=== PATIENT | male | born 1930 | race Caucasian/White ===

== ENCOUNTER 2017-04-09 07:37 | Emergency (ER) | payer OTHER ==
[~2017-04-09] VITALS: Ht 165.1 cm; Wt 75.5 kg
[~2017-04-09 07:37] MED LIST: AMLO2.5T PO; ASPI-428 PO; ATOR-24 PO; ENAL10TA88 PO; METO50TA16 PO; NTRGSL/4 UT
[2017-04-09 07:40] VITALS: TEMP 36.6; Ht 165.1 cm; Wt 75.5 kg
--- NOTE | 2017-04-09 08:06 | EMERGENCY ROOM VISIT NOTE ---
History First contact with patient: 07:43 Chief Complaint: LEG PAIN,LEG INJURY Stated Complaint: RIGHT KNEE PAIN/LEG PAIN History of Present Illness The patient is a 86 year old male who presents to the Emergency Room with complaints of right lower leg pain. The patient states history morning, he awoke with the discomfort, and throughout the day it was worsening. The patient states he has noted a lump in the anterior, medial aspect of the ankle. The patient states he is able to move and bear weight, however this causes significantly increased pain. The patient states the pain radiates up his leg and to his hip. The patient states yesterday he called his PCP, and they suspected sciatica, and told him that an x-ray wouldn't show anything. The patient describes the pain as sharp and rates it 8/10 while walking. The patient states the pain improves while sitting. He took a few Tylenol yesterday , and states he is uncertain if they helped, because he sat around during the day, which also helped with the pain. The patient denies recent travel. He denies injury. The patient denies history of blood clots. He does report some tingling in his right big toe, but denies any numbness or weakness. Patient denies dyspnea, chest pain, swelling, pain anywhere else, nausea, vomiting, diarrhea, constipation, recent illness, color changes, or other concerning symptoms. Review of Systems A complete 10 point review of systems was reviewed with the patient with pertinent positives and negatives as per history of present illness. All else were negative. 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 Problems: (1) Aortocoronary Bypass Social History Smoking Status: Never Smoker Smokeless Tobacco Use: No Alcohol Use: none Drug Use: none Marital Status: Housing Status: lives with significant other Occupation Status: retired Current/Historical Medications Scheduled Amlodipine (Norvasc), 2.5 MG PO DAILY Aspirin (Ecotrin Low Strength), 81 MG PO DAILY Atorvastatin (Lipitor), 40 MG PO DAILY Enalapril (Vasotec), 10 MG PO BID Metoprolol Tartrate (Lopressor) (Lopressor), 25 MG PO BID Nitroglycerin (Nitrostat), 0.4 MG UT PRN Scheduled PRN Tramadol (Ultram), 1 TAB PO TID PRN for Pain Allergies rosuvastatin Physical Exam Vital Signs Date Time Temp Pulse Resp B/P (MAP) Pulse Ox O2 Delivery O2 Flow Rate FiO2 04/09/17 09:12 56 17 175/58 99 Room Air 04/09/17 07:40 36.6 53 18 193/79 97 Room Air Physical Exam VITALS: Vitals are noted on the nurse's note and reviewed by myself. Vital signs stable. GENERAL: This is an 86 yo male, in no acute distress, nondiaphoretic, well- developed well-nourished. SKIN: There is mild erythema and very little swelling of the right lower extremity from the ankle to the foot. There are several varicosities on bilateral lower extremities, worse on the right than the left. The skin was without rashes, edema, or bruising. There is no tenting of the skin. Capillary reflex less than 2 seconds. HEAD: Normocephalic atraumatic. EARS: External auditory canals clear, tympanic membranes pearly james without erythema or effusion bilaterally. EYES: Pupils equal round and reactive to light and accommodation. Conjunctivae without injection, sclerae without icterus. Extraocular movements intact. NOSE: Patent, turbinates without inflammation or discharge. No sinus tenderness. MOUTH: Mucous membranes moist. Tonsils are not enlarged. Pharynx without erythema or exudate. Uvula midline. Airway patent. Tongue does not deviate. NECK: Supple without nuchal rigidity. No lymphadenopathy. No thyromegaly. Cervical spine is nontender. No JVD. HEART: Regular rate and rhythm without murmurs gallops or rubs. LUNGS: Clear to auscultation bilaterally without wheezes, rales or rhonchi. No dullness to percussion. No retractions or accessory muscle use. MUSCULOSKELETAL: No muscle atrophy, erythema, or edema noted. Full range of motion with mild joint tenderness in the right knee and ankle. No tenderness to palpation. No tenderness to palpation of the back. Normal gait. Strength 5/ 5 throughout. Negative Bebe's Sign. NEURO: Patient was alert and oriented to person place and time. Normal sensation to light and sharp touch. Deep tendon reflexes 2+ throughout. No focal neurological deficits. Medical Decision & Procedures ER Provider Diagnostic Interpretation: RADIOLOGY: Venous Doppler RLE: FINDINGS: There is normal compressibility, flow, and augmentation within the right lower extremity deep venous system. IMPRESSION: No sonographic evidence of deep venous thrombosis within the imaged right lower extremity. Medical Decision The patient was seen and evaluated as above. He presented with right lower extremity pain. The patient states symptoms worsen with walking, and improved with rest. While he has not recently traveled, the patient is mostly sedentary. Based on his symptoms and examination, I suspect possible DVT, and did order an ultrasound in order to rule this out. The ultrasound was negative, and as the patient relaxed with his foot elevated on the bed, the redness and swelling went down. The patient was seen and evaluated by Dr. Lopez, and the patient told him that he was experiencing knee pain, denies pain in the foot or ankle. The patient states the pain is worse when his leg is straightened, and and improves with it bent. Based on the patient's symptoms and negative ultrasound, I suspect musculoskeletal nature of illness versus neuropathy. Will treat patient for musculoskeletal pain, and he will follow up at his PCP appointment this morning. Differential diagnosis includes: DVT, fracture or stress fracture, sprain or strain, varicose veins, lymphedema, cellulitis, arthritis, compartment syndrome , neuropathy, gout, Peripheral artery disease, atherosclerosis, malignancy, and others. [place] Drug Monitoring Program Search Results: patient reviewed within database, no issues identified Medication Reconcilliation Current Medication List: was personally reviewed by me Blood Pressure Screening Patient's blood pressure: Elevated blood pressure Blood pressure disposition: Elevated BP felt to be situational, Referred to PCP Impression Primary Impression: Leg pain, right Departure Information Dispostion Home / Self-Care Condition GOOD Prescriptions Tramadol (Ultram) 50 Mg Tab 1 TAB PO TID Y for Pain, #15 TAB Prov: Tracy Rock, ROSA 04/09/17 Referrals Sridhar Huddleston M.D. (MEDICAL) (PCP) Patient Instructions ED Degenerative Joint Disease, My [facility] Additional Instructions You were seen in the emergency department today for right foot and leg pain. We did rule out a blood clot with an ultrasound. For pain control, he may use acetaminophen (Tylenol) 1000mg three times daily. Do not exceed 3000mg in 24 hours. You may want to consider Fish Oil (2000mg daily), Glucosamine (as directed), and Tumeric (500mg daily) as supplements which help with arthritis pain. If you experience any fever, redness, chills, nausea, vomiting, significant swelling in the foot or toe, or other concerning symptoms, return to the emergency department or follow-up with your PCP. Please discuss your emergency department visit with your PCP today your appointment.
--- NOTE | 2017-04-09 08:54 | DIAGNOSTIC IMAGING REPORT ---
BILATERAL LOWER EXTREMITY VENOUS DOPPLER HISTORY: Acute right lower leg pain/redness COMPARISON STUDY: None. FINDINGS: There is normal compressibility, flow, and augmentation within the right lower extremity deep venous system. IMPRESSION: No sonographic evidence of deep venous thrombosis within the imaged right lower extremity. Electronically signed by: Julito Valenzuela M.D. 04/09/2017 8:53 AM Dictated Date/Time: 04/09/2017 8:51 AM
--- NOTE | 2017-04-09 09:46 | EMERGENCY ROOM VISIT NOTE ---
ED Visit Note First contact with patient: 07:43 Patient was seen by our PA/SLUBBER OPERATOR. I was involved in the patient's care and did evaluate the patient myself. I was involved in the care throughout the ER stay. The patient presents with right lower extremity pain. The pain is at times in the knee, at times in the calf and at times in the foot. There is no edema, no cellulitis. No evidence for neurovascular compromise. Ultrasound does not show DVT. The patient is going to be discharged on something for pain, rest and ice have been encouraged. He can follow with his doctor's office for a recheck later this week.
[2017-04-09] MEDS ORDERED: TRAM-10 PO (09:48)
[2017-04-09 10:09] VITALS: BP 175/58; PULSE 56; O2SAT 99
== END 2017-04-09 10:11 | disposition home or self-care (01) ==
LOC: C.EDB 07:38 → C.EDA 10:11
DX: M79.661 Pain in right lower leg (principal); R22.41 Localized swelling, mass and lump, right lower limb; I25.10 Atherosclerotic heart disease of native coronary artery without angina pectoris; I10 Essential (primary) hypertension; I73.9 Peripheral vascular disease, unspecified; Z95.1 Presence of aortocoronary bypass graft; Z79.82 Long term (current) use of aspirin

== ENCOUNTER 2017-04-10 11:22 | Emergency (ER) | payer OTHER ==
[~2017-04-10] VITALS: Ht 165.1 cm; Wt 75.0 kg
[~2017-04-10 11:22] MED LIST changes: +TRAM-10 PO
[2017-04-10 11:34] VITALS: TEMP 36.7; Ht 165.1 cm; Wt 75.0 kg
--- NOTE | 2017-04-10 12:21 | EMERGENCY ROOM VISIT NOTE ---
History Report prepared by Tamar: Benny Shah Under the Supervision of: Dr. Kurtis Dickens M.D. First contact with patient: 12:03 Chief Complaint: LEG PAIN,LEG INJURY Stated Complaint: RIGHT SIDE PAIN - LEG, HIP, FOOT History of Present Illness The patient is an 86 year old male who presents to the Emergency Room with complaints of worsening right leg pain that started 3 days ago. The patient says that the pain ranges from his right hip to his right knee, as well as the front part of his lower leg. He states that he called his primary care physician earlier yesterday, and made an appointment with the doctor, but because the pain was so bad, he decided to be seen here yesterday. The patient' s physician said that an x-ray would not be indicated because the patient's pain is most likely muscular. In the ED yesterday, the patient was checked for blood clots, per the patient's family. The doctors believe that the patient's pain is due to sciatica. The patient notes that the pain has been constant and makes him unable to "do anything", so he decided to come back here today. He states that the pain is worsened with movement. He has taken one dose of Tramadol 50 mg today, and this was his first dose as he just received the prescription. The patient's family says that the patient's pain is worsened with getting up and getting around. The patient has been noted to be doing more outdoor work recently before the pain came on. Any falls were denied on behalf of the patient and the patient denies any abdominal pain, bowel issues or new urinary symptoms. The patient says that he is followed by his doctor for his prostate, and the right testicle has been sore, but this is not new. He states that he urinates every hour but this is not new in the setting of his enlarged prostate. Source of History: patient, family Onset: 3 days ago Position: leg (right) Symptom Intensity: unable to "do anything" Timing: worsening Associated Symptoms: No abdominal pain, No urinary symptoms (no new) Note: Associated symptoms: Right hip pain. Denies any falls or bowel problems. Review of Systems See HPI for pertinent positives and negatives. A total of ten systems were reviewed and were otherwise negative. 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 Social History Smoking Status: Never Smoker Alcohol Use: none Drug Use: none Marital Status: Housing Status: lives with significant other Occupation Status: retired Current/Historical Medications Scheduled Amlodipine (Norvasc), 2.5 MG PO DAILY Aspirin (Ecotrin Low Strength), 81 MG PO DAILY Atorvastatin (Lipitor), 40 MG PO DAILY Enalapril (Vasotec), 10 MG PO BID Gabapentin (Neurontin), 1 CAP PO TID Metoprolol Tartrate (Lopressor) (Lopressor), 25 MG PO BID Nitroglycerin (Nitrostat), 0.4 MG UT PRN Prednisone (Prednisone), 2 TAB PO DAILY Scheduled PRN Tramadol (Ultram), 1 TAB PO TID PRN for Pain Allergies Coded Allergies: Rosuvastatin (Verified Adverse Reaction, Unknown, joint pain, 04/10/17) Physical Exam Vital Signs Date Time Temp Pulse Resp B/P (MAP) Pulse Ox O2 Delivery O2 Flow Rate FiO2 04/10/17 16:57 56 18 175/67 98 04/10/17 14:47 54 18 193/68 99 Room Air 04/10/17 13:08 56 18 161/66 99 Room Air 04/10/17 11:34 36.7 68 18 161/79 95 Physical Exam GENERAL: Awake, alert, well-appearing, in no acute distress HENT: Normocephalic, atraumatic. Oropharynx unremarkable. EYES: Normal conjunctiva. Sclera non-icteric. NECK: Supple. No nuchal rigidity. FROM. No JVD. RESPIRATORY: Clear to auscultation. CARDIAC: Regular rate, normal rhythm. Extremities warm and well perfused. Pulses equal. ABDOMEN: Soft, non-distended. No tenderness to palpation. No rebound or guarding. No masses. RECTAL: Deferred. MUSCULOSKELETAL: Chest examination reveals no tenderness. Mild tenderness in right lateral aspect of his buttock in a sciatic distribution. +straight leg raise on right. 5/5 strength with FROM and SILT x 4 Ext. There is no CVA tenderness to palpation. No joint edema. LOWER EXTREMITIES: Calves are equal size bilaterally and non-tender. No edema. No discoloration. NEURO: Normal sensorium. Positive straight raise leg test. No sensory or motor deficits noted. SKIN: No rash or jaundice noted. Medical Decision & Procedures ER Provider Diagnostic Interpretation: Radiology results as stated below per my review and radiologist interpretation: MRI OF THE LUMBAR SPINE WITHOUT IV CONTRAST CLINICAL HISTORY: Chronic low back pain. Sciatica. COMPARISON STUDY: Abdominal CT dated 11/27/2011. TECHNIQUE: MRI of the lumbar spine is performed utilizing various T1 and T2-weighted sequences in the axial and sagittal planes. IV contrast was not administered for this examination. FINDINGS: Lumbar spine: Vertebral body height and alignment are maintained throughout the lumbar spine. Marrow signal intensity is heterogeneous. Small anterior osteophytes are seen throughout. The transverse and spinous processes are intact as visualized. There is no evidence of spondylolysis. 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 These were also seen by CT in 2012. No destructive bony lesion is clearly seen. Degenerative endplate edema is noted at L5-S1. Intervertebral discs: Degenerative disc desiccation is seen throughout the lumbar spine. There is moderate to advanced loss of height at L1-L2, L2-L3, and L5-S1. Spinal cord: The visualized spinal cord is normal in morphology and signal intensity. The conus medullaris terminates at the level of L2. The nerve roots of the cauda equina are normal in morphology. L1-L2: Unremarkable. L2-L3: There is minimal posterior disc bulge and annular fissure. No significant acquired compromise of the central canal is identified. There is mild bilateral subarticular stenosis, left greater than right. This may abut the exiting left L2 nerve root. Facet arthropathy is of no consequence. The neural foramina are clear. Facet joint effusions are noted. L3-L4: There is minimal posterior disc bulge. No significant acquired compromise of the central canal is identified. There is mild bilateral subarticular stenosis. Facet arthropathy is of no consequence. The neural foramina are clear. Facet joint effusions are identified. L4-L5: There is a small posterior disc bulge. There is also hypertrophy of the ligamentum flavum. There is no significant acquired compromise of the central canal which measures 10 mm in AP diameter. Facet arthropathy causes mild bilateral neural foraminal stenosis. Disc bulge is eccentric to left and causes bilateral subarticular stenosis. This may abut the exiting bilateral L4 nerve roots. L5-S1: There is anterior disc herniation at this level. There is no posterior disc bulge. The central canal is clear. Facet arthropathy causes mild bilateral neural foraminal stenosis. Sacrum: Fatty marrow signal change is noted in the sacrum. The sacrum is otherwise normal as imaged. Soft tissues: There is fatty atrophy of the paraspinous and iliopsoas musculature. The partially imaged retroperitoneal structures are grossly unremarkable but incompletely assessed. IMPRESSION: 1. There is no posterior disc herniation or significant acquired compromise of the central canal. 2. There is anterior disc herniation at L5-S1. Degenerative endplate edema is noted at this level. 3. Multilevel spondylotic change as above. See discussion for detailed level by level analysis. 4. No destructive bony lesion is identified. Dictated: 04/10/2017 3:02 PM Transcribed: 04/10/2017 3:19 PM [email or web address] Electronically signed by: Jhony Marshall M.D. 04/10/2017 3:26 PM Dictated Date/Time: 04/10/2017 3:02 PM RIGHT HIP UNILATERAL 2 VIEWS, RIGHT FEMUR 2 VIEWS ROUTINE CLINICAL HISTORY: 86 years-old Male presenting with pain Right. TECHNIQUE: Frontal and frog-leg lateral views of the right hip and frontal and lateral views of the right femur were obtained. COMPARISON: None. FINDINGS: Right hip: Right hip joint congruent. Mild degenerative change. Preservation of joint space. No acute fracture or malalignment. Visualized portion of the pelvis demonstrates degenerative change of the pubic symphysis and right sacroiliac joint. Enthesophyte noted at the insertion of the gluteus complex. Right femur: No acute fracture. Knee joint congruent although tricompartmental degenerative changes present with medial joint space loss and subchondral sclerosis. Trace knee effusion may be present. Atherosclerosis. IMPRESSION: No acute osseous injury of the right hip or right femur. Degenerative changes as above most severe in the medial compartment of the knee. Electronically signed by: Diogenes Almanza M.D. 04/10/2017 4:08 PM Dictated Date/Time: 04/10/2017 4:05 PM RIGHT HIP UNILATERAL 2 VIEWS, RIGHT FEMUR 2 VIEWS ROUTINE CLINICAL HISTORY: 86 years-old Male presenting with pain Right. TECHNIQUE: Frontal and frog-leg lateral views of the right hip and frontal and lateral views of the right femur were obtained. COMPARISON: None. FINDINGS: Right hip: Right hip joint congruent. Mild degenerative change. Preservation of joint space. No acute fracture or malalignment. Visualized portion of the pelvis demonstrates degenerative change of the pubic symphysis and right sacroiliac joint. Enthesophyte noted at the insertion of the gluteus complex. Right femur: No acute fracture. Knee joint congruent although tricompartmental degenerative changes present with medial joint space loss and subchondral sclerosis. Trace knee effusion may be present. Atherosclerosis. IMPRESSION: No acute osseous injury of the right hip or right femur. Degenerative changes as above most severe in the medial compartment of the knee. Electronically signed by: Diogenes Almanza M.D. 04/10/2017 4:08 PM Dictated Date/Time: 04/10/2017 4:05 PM Medications Administered Medications (Trade) Dose Ordered Sig/[place] Route Start Time Stop Time Status Last Admin Dose Admin Ibuprofen (Motrin Tab) 600 mg NOW STAT PO 04/10/17 12:24 04/10/17 12:27 DC 04/10/17 13:05 600 MG Diazepam (Valium Tab) 2 mg NOW ONCE PO 04/10/17 12:30 04/10/17 12:31 DC 04/10/17 13:05 2 MG Oxycodone/ Acetaminophen (Percocet 5-325mg Tab) 1 tab NOW STAT PO 04/10/17 15:17 04/10/17 15:19 DC 04/10/17 15:32 1 TAB ED Course 1205: The patient was evaluated in room B3B. A complete history and physical exam was performed. 1224: Ordered Motrin Tab 600 mg PO. 1230: Ordered Valium Tab 2 mg PO. 1509: I reevaluated and updated the patient. 1517: Ordered Percocet 5-325mg Tab 1 tab PO. 1722: I reevaluated the patient. Discussed results and discharge instructions: he verbalized understanding and agreement. The patient is ready for discharge. Medical Decision I reviewed the patient's past medical history, medications, and the nursing notes as described above. Differential diagnoses: sciatica, disk herniation, fracture, musculoskeletal strain. Patient presents to emergency department persistent back and right leg pain after being seen in emergency department several days prior with diagnosis of sciatica per history of present illness. Arrival the patient appears uncomfortable is no distress. Afebrile stable vital signs. Considering the patient's symptoms and apparent significant disability and unable to ambulate at home MRI was done which showed areas of disc bulge that could be consistent with the patient's symptoms. Otherwise no concerning findings for cord compression. However for completeness x-rays were done also to rule out any pathologic fractures and was negative for acute findings. Patient with marginal improvement with ibuprofen, Valium, oxycodone. Case management assisting to help patient arrange home PT to eval. Findings and plan for follow- up d/w patient. Patient agreeable and d/c'd per discharge instructions. Medication Reconcilliation Current Medication List: was personally reviewed by me Blood Pressure Screening Patient's blood pressure: Elevated blood pressure Blood pressure disposition: Elevated BP felt to be situational Impression Primary Impression: Sciatica Scribe Attestation The scribe's documentation has been prepared under my direction and personally reviewed by me in its entirety. I confirm that the note above accurately reflects all work, treatment, procedures, and medical decision making performed by me. Departure Information Dispostion Home / Self-Care Referrals Sridhar Huddleston M.D. (MEDICAL) (PCP) Patient Instructions ED Sciatica, My [facility] Additional Instructions Please follow up with your primary care physician in the next 1-3 days for reevaluation and likely physical therapy. Otherwise, your exam, MRI, x-rays did not show signs of an emergent condition at this time. Continue current medications as prescribed. Apply heating pad every 20 minutes throughout the day for additional pain relief. Return to the emergency department for worsening symptoms as described in the accompanying instructions.
[2017-04-10] MEDS ORDERED: IBUPROFEN 600 MG TAB PO STA (12:24)
[2017-04-10] MEDS ORDERED: DIAZEPAM 2MG TAB PO ONE (12:30)
[2017-04-10] MEDS ORDERED: OXYCODONE/ACETAMINOPHEN 5-325 TAB PO STA (15:17)
--- NOTE | 2017-04-10 15:20 | DIAGNOSTIC IMAGING REPORT ---
MRI OF THE LUMBAR SPINE WITHOUT IV CONTRAST CLINICAL HISTORY: Chronic low back pain. Sciatica. COMPARISON STUDY: Abdominal CT dated 11/27/2011. TECHNIQUE: MRI of the lumbar spine is performed utilizing various T1 and T2-weighted sequences in the axial and sagittal planes. IV contrast was not administered for this examination. FINDINGS: Lumbar spine: Vertebral body height and alignment are maintained throughout the lumbar spine. Marrow signal intensity is heterogeneous. Small anterior osteophytes are seen throughout. The transverse and spinous processes are intact as visualized. There is no evidence of spondylolysis. 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 These were also seen by CT in 2012. No destructive bony lesion is clearly seen. Degenerative endplate edema is noted at L5-S1. Intervertebral discs: Degenerative disc desiccation is seen throughout the lumbar spine. There is moderate to advanced loss of height at L1-L2, L2-L3, and L5-S1. Spinal cord: The visualized spinal cord is normal in morphology and signal intensity. The conus medullaris terminates at the level of L2. The nerve roots of the cauda equina are normal in morphology. L1-L2: Unremarkable. L2-L3: There is minimal posterior disc bulge and annular fissure. No significant acquired compromise of the central canal is identified. There is mild bilateral subarticular stenosis, left greater than right. This may abut the exiting left L2 nerve root. Facet arthropathy is of no consequence. The neural foramina are clear. Facet joint effusions are noted. L3-L4: There is minimal posterior disc bulge. No significant acquired compromise of the central canal is identified. There is mild bilateral subarticular stenosis. Facet arthropathy is of no consequence. The neural foramina are clear. Facet joint effusions are identified. L4-L5: There is a small posterior disc bulge. There is also hypertrophy of the ligamentum flavum. There is no significant acquired compromise of the central canal which measures 10 mm in AP diameter. Facet arthropathy causes mild bilateral neural foraminal stenosis. Disc bulge is eccentric to left and causes bilateral subarticular stenosis. This may abut the exiting bilateral L4 nerve roots. L5-S1: There is anterior disc herniation at this level. There is no posterior disc bulge. The central canal is clear. Facet arthropathy causes mild bilateral neural foraminal stenosis. Sacrum: Fatty marrow signal change is noted in the sacrum. The sacrum is otherwise normal as imaged. Soft tissues: There is fatty atrophy of the paraspinous and iliopsoas musculature. The partially imaged retroperitoneal structures are grossly unremarkable but incompletely assessed. IMPRESSION: 1. There is no posterior disc herniation or significant acquired compromise of the central canal. 2. There is anterior disc herniation at L5-S1. Degenerative endplate edema is noted at this level. 3. Multilevel spondylotic change as above. See discussion for detailed level by level analysis. 4. No destructive bony lesion is identified. Dictated: 04/10/2017 3:02 PM Transcribed: 04/10/2017 3:19 PM [email or web address] Electronically signed by: Jhony Marshall M.D. 04/10/2017 3:26 PM Dictated Date/Time: 04/10/2017 3:02 PM
--- NOTE | 2017-04-10 16:09 | DIAGNOSTIC IMAGING REPORT ---
RIGHT HIP UNILATERAL 2 VIEWS, RIGHT FEMUR 2 VIEWS ROUTINE CLINICAL HISTORY: 86 years-old Male presenting with pain Right. TECHNIQUE: Frontal and frog-leg lateral views of the right hip and frontal and lateral views of the right femur were obtained. COMPARISON: None. FINDINGS: Right hip: Right hip joint congruent. Mild degenerative change. Preservation of joint space. No acute fracture or malalignment. Visualized portion of the pelvis demonstrates degenerative change of the pubic symphysis and right sacroiliac joint. Enthesophyte noted at the insertion of the gluteus complex. Right femur: No acute fracture. Knee joint congruent although tricompartmental degenerative changes present with medial joint space loss and subchondral sclerosis. Trace knee effusion may be present. Atherosclerosis. IMPRESSION: No acute osseous injury of the right hip or right femur. Degenerative changes as above most severe in the medial compartment of the knee. Electronically signed by: Diogenes Almanza M.D. 04/10/2017 4:08 PM Dictated Date/Time: 04/10/2017 4:05 PM
[2017-04-10 16:57] VITALS: BP 175/67; PULSE 56; O2SAT 98
[2017-04-11] MEDS ORDERED: NRN/300 PO (18:52)
[2017-04-11] MEDS ORDERED: PRED20TA PO (18:52)
== END 2017-04-10 17:52 | disposition home or self-care (01) ==
LOC: C.EDB 11:24
DX: M54.41 Lumbago with sciatica, right side (principal); I25.10 Atherosclerotic heart disease of native coronary artery without angina pectoris; I10 Essential (primary) hypertension; I73.9 Peripheral vascular disease, unspecified; Z95.1 Presence of aortocoronary bypass graft; Z79.82 Long term (current) use of aspirin; Z79.899 Other long term (current) drug therapy

== ENCOUNTER 2017-04-11 16:08 | Emergency (ER) | payer OTHER ==
[2017-04-11 16:11] VITALS: TEMP 36.6; Ht 165.1 cm
[2017-04-11] MEDS ORDERED: DEXAMETHASONE SOD INJ 4 MG/ML VIAL IM STA (17:25)
[2017-04-11] MEDS ORDERED: GABAPENTIN 300 MG CAP PO ONE (17:30)
--- NOTE | 2017-04-11 17:44 | DIAGNOSTIC IMAGING REPORT ---
RIGHT TIBIA/FIBULA 2 VIEWS ROUTINE HISTORY: 86 years-old Male rt leg pain Right COMPARISON: Right femur radiographs 04/10/2017 TECHNIQUE: Frontal and lateral views of the right tibia and fibula. 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 No acute fracture or dislocation is identified. Negative for radiopaque foreign body. IMPRESSION: Degenerative changes about the knee without acute fracture or dislocation of the right tibia or fibula. The above report was generated using voice recognition software. It may contain grammatical, syntax or spelling errors. Electronically signed by: Julito Valenzuela M.D. 04/11/2017 5:43 PM Dictated Date/Time: 04/11/2017 5:42 PM
[2017-04-11] MEDS ORDERED: NRN/300 PO (18:52)
[2017-04-11] MEDS ORDERED: PRED20TA PO (18:52)
--- NOTE | 2017-04-11 18:54 | EMERGENCY ROOM VISIT NOTE ---
History Report prepared by Tamar: Dae Zarate Under the Supervision of: Dr. Kris Geronimo D.O. First contact with patient: 17:00 Chief Complaint: FOOT PAIN Stated Complaint: RT FOOT/LEG PAIN History of Present Illness The patient is a 86 year old male who presents to the Emergency Room with complaints of right leg pain that began a couple of days ago. He rates his pain a 10/10 in severity. The patient was here in the ER each day, for the past three days. Each time, he was discharged. He received multiple scans and tests which were negative. The only reason for the pain that his providers could think of is that he is having "disc deterioration that is putting pressure onto his sciatic nerve." He is experiencing pain from his right foot to his right buttock. His pain worsens with movement. Source of History: patient Onset: a couple of days ago Position: leg (right) Symptom Intensity: 10/10 Quality: pressure Timing: constant Modifying Factors (Worsening): movement Note: He has pain in his right foot, knee, hip, and buttock. Review of Systems See HPI for pertinent positives & negatives. A total of 10 systems reviewed and were otherwise negative. 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 Social History Smoking Status: Never Smoker Alcohol Use: none Drug Use: none Marital Status: Housing Status: lives with significant other Occupation Status: retired Current/Historical Medications Scheduled Amlodipine (Norvasc), 2.5 MG PO DAILY Aspirin (Ecotrin Low Strength), 81 MG PO DAILY Atorvastatin (Lipitor), 40 MG PO DAILY Enalapril (Vasotec), 10 MG PO BID Gabapentin (Neurontin), 1 CAP PO TID Metoprolol Tartrate (Lopressor) (Lopressor), 25 MG PO BID Nitroglycerin (Nitrostat), 0.4 MG UT PRN Prednisone (Prednisone), 2 TAB PO DAILY Scheduled PRN Tramadol (Ultram), 1 TAB PO TID PRN for Pain Allergies Coded Allergies: Rosuvastatin (Verified Adverse Reaction, Unknown, joint pain, 04/10/17) Physical Exam Vital Signs Date Time Temp Pulse Resp B/P (MAP) Pulse Ox O2 Delivery O2 Flow Rate FiO2 04/11/17 19:30 70 18 192/71 96 04/11/17 18:05 59 20 183/79 96 Room Air 04/11/17 16:11 36.6 58 18 161/66 97 Room Air Physical Exam CONSTITUTIONAL/VITAL SIGNS: Reviewed / noted above. GENERAL: Non-toxic in appearance. INTEGUMENTARY: Warm, dry, and [place]. HEAD: Normocephalic. EYES: without scleral icterus or trauma. ENT/OROPHARYNX: clear and moist. LYMPHADENOPATHY/NECK: Is supple without lymphadenopathy or meningismus. RESPIRATORY: Lungs clear and equal. CARDIOVASCULAR: Regular rate and rhythm. GI/ABDOMEN: Soft and nontender. No organomegaly or pulsatile mass. No rebound or guarding. Normal bowel sounds. EXTREMITIES: Warm and well perfused. Normal distal pulses. No pain with ROM on the right ankle, knee, or hip. BACK: No CVA tenderness. NEUROLOGICAL: Intact without focal deficits. PSYCHIATRIC: normal affect. MUSCULOSKELETAL: Normally developed with good muscle tone. Medical Decision & Procedures ER Provider Diagnostic Interpretation: Radiology results as stated below per my review and radiologist interpretation: RIGHT TIBIA/FIBULA 2 VIEWS ROUTINE HISTORY: 86 years-old Male rt leg pain Right COMPARISON: Right femur radiographs 04/10/2017 TECHNIQUE: Frontal and lateral views of the right tibia and fibula. 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 No acute fracture or dislocation is identified. Negative for radiopaque foreign body. IMPRESSION: Degenerative changes about the knee without acute fracture or dislocation of the right tibia or fibula. The above report was generated using voice recognition software. It may contain grammatical, syntax or spelling errors. Electronically signed by: Julito Valenzuela M.D. 04/11/2017 5:43 PM Dictated Date/Time: 04/11/2017 5:42 PM Medications Administered Medications (Trade) Dose Ordered Sig/Michelle Route Start Time Stop Time Status Last Admin Dose Admin Dexamethasone Sodium Phosphate (Decadron Inj) 10 mg NOW STAT IM 04/11/17 17:25 04/11/17 17:34 DC 04/11/17 18:01 10 MG Gabapentin (Neurontin Cap) 300 mg ONE ONCE PO 04/11/17 17:30 04/11/17 17:34 DC 04/11/17 18:00 300 MG ED Course 1700: Previous medical records were reviewed. The patient was evaluated in room C5. A complete history and physical examination was performed. 1725: Ordered Decadron Inj 10 mg IM 1730: Ordered Neurontin Cap 300 mg PO 1855: On reevaluation, the patient is resting. I discussed the results and findings with the patient. He verbalized agreement of the treatment plan. He was discharged home. Medical Decision Differentials include claudication, infection, sciatica, DVT, arthritis, and piriform syndrome. This is an 86-year-old male who presents to the ED with a chief complaint of right leg pain. The patient was seen here in the emergency department the past 2 days. He has had MRI of the lumbar spine, x-rays of the hip and femur as well as an ultrasound of the leg. No clear indication of the cause for the patient's symptoms. The patient seems to have pain with movement. His symptoms were felt to be possibly related to sciatica. The patient, on exam today does not have any pain with range of motion of the right hip, right knee or right ankle. There is no obvious abnormalities noted there. History leg raise was negative. The patient does not have a clinical story consistent with claudication. He has good distal pulses. He could have neuropathy. X-rays of the right tib-fib were performed and reveals arthritic changes in the right knee joint but otherwise nothing significant. The patient was treated with IV Decadron as well as by mouth Neurontin. He will be discharged on prednisone and Neurontin. He is to follow-up with orthopedics for recheck. Medication Reconcilliation Current Medication List: was personally reviewed by me Blood Pressure Screening Patient's blood pressure: Elevated blood pressure Blood pressure disposition: Did not require urgent referral Impression Primary Impression: Arthritis Additional Impression: Leg pain Scribe Attestation The scribe's documentation has been prepared under my direction and personally reviewed by me in its entirety. I confirm that the note above accurately reflects all work, treatment, procedures, and medical decision making performed by me. Departure Information Dispostion Home / Self-Care Prescriptions Prednisone (Prednisone) 20 Mg Tab 2 TAB PO DAILY for 4 Days, #8 TAB Prov: Kris Geronimo D.O. 04/11/17 Gabapentin (NEURONTIN) 300 Mg Cap 1 CAP PO TID for 30 Days, #90 CAP 3 Refills Prov: Kris Geronimo D.O. 04/11/17 Referrals Sridhar Huddleston M.D. (MEDICAL) (PCP) Mannie Vallejo MD Forms HOME CARE DOCUMENTATION FORM, IMPORTANT VISIT INFORMATION Patient Instructions My [facility] Additional Instructions Neurontin: Take 2 tablets tomorrow and then 3 tablets on day 3 and then 3 tablets daily. Take this for pain. Prednisone as prescribed. Follow-up with orthopedics for further evaluation. Dr. Vallejo has been listed for follow-up. Follow-up with your doctor for recheck as well. Problem Qualifiers Additional Impression: Leg pain Laterality: right Qualified Codes: M79.604 - Pain in right leg
[2017-04-11 19:30] VITALS: BP 192/71; PULSE 70; O2SAT 96
== END 2017-04-11 19:31 | disposition home or self-care (01) ==
LOC: C.EDB 16:09 → C.EDC 19:31
DX: M79.604 Pain in right leg (principal); M17.11 Unilateral primary osteoarthritis, right knee; I25.10 Atherosclerotic heart disease of native coronary artery without angina pectoris; I10 Essential (primary) hypertension; I73.9 Peripheral vascular disease, unspecified; Z95.1 Presence of aortocoronary bypass graft; Z79.82 Long term (current) use of aspirin; Z79.899 Other long term (current) drug therapy

== ENCOUNTER 2020-07-23 17:40 | Inpatient (IN) ==
[2020-07-23 18:39] LABS: Basophils # (auto) 0.01 K/uL (0-0.2); Basophils % (auto) 0.2 %; Eosinophils # (auto) 0.04 K/uL (0-0.5); Eosinophils % (auto) 0.8 %; Hematocrit (blood only) 40.2 % (42-52); Hemoglobin 13.8 g/dL (14.0-18.0); Immature Granulocytes # (auto) 0.02 K/uL (0.00-0.02); Immature Granulocytes % (auto) 0.4 %; Lymphocytes # (auto) 1.17 K/uL (1.2-3.4); Lymphocytes % (auto) 22.4 %; Mean Corpuscular Hemoglobin 35.1 pg (25-34); Mean Corpuscular Hgb Conc 34.3 g/dL (32-36); Mean Corpuscular Volume 102.3 fL (80-100); Mean Platelet Volume 11.9 fL (7.4-10.4); Monocytes # (auto) 0.36 K/uL (0.11-0.59); Monocytes % (auto) 6.9 %; Neutrophils # (auto) 3.62 K/uL (1.4-6.5); Neutrophils % (auto) 69.3 %; Platelet Count 143 K/uL (130-400); RDW Coefficient of Variation 13.4 % (11.5-14.5); RDW Standard Deviation 50.1 fL (36.4-46.3); Red Blood Count 3.93 M/uL (4.7-6.1); White Blood Count 5.22 K/uL (4.8-10.8)
[2020-07-23 19:06] LABS: Albumin Globulin Ratio 0.8 (0.9-2); Albumin Level 3.3 gm/dl (3.4-5.0); BUN Creatinine Ratio 24.7 (10-20); Bilirubin,Total 1.4 mg/dl (0.2-1); Calcium 8.3 mg/dl (8.5-10.1); Creatinine Clr Calc Pharmacy 26.6 ml/min; Est GFR (African American) 40.5; Globulin 4.1 gm/dl (2.5-4.0); Magnesium 2.4 mg/dl (1.8-2.4); Potassium 4.4 mmol/L (3.5-5.1); Total Protein 7.4 gm/dl (6.4-8.2); Troponin I 0.024 ng/ml (0-0.045)
[2020-07-23 19:07] LABS: Base Excess VBG 18.7 mEq/L; HCO3 VBG 40 mmol/L; Oxygen Saturation VBG < 60.0 %; PCO2 VBG 35 mmHg (38-50); PO2 VBG 26 mmHg; pH VBG 7.68 (7.36-7.41)
--- NOTE | 2020-07-23 19:09 | XRay Report ---
XR chest 1V portable CLINICAL HISTORY: SEPSIS COMPARISON STUDY: Chest radiograph September 09, 2018. FINDINGS: Lung volumes are normal. There is no pneumothorax or pleural effusion. There is mild cardio megaly. Mediastinal surgical clips are noted. There are bibasilar opacities, greater on the left. IMPRESSION: Bibasilar opacities, greater on the left. The findings favor an infectious process. Radi ographic follow-up is recommended. ACT 112: Negative or not required by law. Electronically signed by: James Crouch M.D. 07/23/2020 7:08 PM
--- NOTE | 2020-07-23 19:15 | Emergency Department Note ---
Impression & Plan Pneumonia due to 2019 novel coronavirus, Hypoxia ED Provider Note NAME: TEMI COBOS AGE: 89 SEX: M : 1930 ARRIVES VIA: Walk-In INFORMANT: Patient, the patient's daughter ED PROVIDER(S): Sourav Salazar DO CHIEF COMPLAINT: Difficulty breathing HPI: The patient is an 89-year-old male [facility]. The patient has been having cough symptoms for approximately 1 week. He describes difficulty breathing and shortness of breath. He does have some lower extremity swelling. He denies having any chest pain. He states that his shortness of breath is worsened with exertion. He does have a cough which is productive for a dark sputum. He denies having any hemoptysis. He denies having any weight loss. He denies having any nausea or vomiting. The patient was visiting family member at a hospital. His significant other had a stroke on and was transferred to [facility] in [place]. He has been visiting her and she recently . The patient presented with his daughter and states that he does not wish to stay in the hospital. ROS: See above HPI for pertinent positives & negatives. A total of 10 systems reviewed and were otherwise negative. PAST MEDICAL HISTORY: See Below PAST SURGICAL HISTORY: See Below FAMILY HISTORY: See Below SOCIAL HISTORY: See Below HOME MEDICATIONS: See Below ALLERGIES: See Below VITALS: See Below PHYSICAL EXAMINATION: GENERAL: Patient is awake alert in no acute distress patient is resting comfortably and showing no signs of anxiety EYES: The conjunctivae are clear. The pupils are round and reactive. EARS, NOSE, MOUTH AND THROAT: The nose is without any evidence of any deformity. Mucous membranes are moist. Tongue is midline. NECK: The neck is nontender and supple. RESPIRATORY: Shallow respirations were noted. Diminished breath sounds are noted both bases. There was conversational dyspnea as well as some bronchospasm in the upper lung morfin. CARDIOVASCULAR: Regular rate and rhythm was noted to auscultation. Some ectopy was noted to auscultation. No definite murmur was noted. GASTROINTESTINAL: The abdomen is soft. Abdomen is nontender. MUSCULOSKELETAL/EXTREMITIES: There is no evidence of gross deformity full range of motion is noted in the hips and shoulders. SKIN: There is no obvious evidence of any rash. Trace pedal edema was noted bilaterally. NEUROLOGIC: Patient is awake alert and oriented x3. MEDICAL DECISION MAKING: The patient is an 89-year-old male who presented to the emergency department for an evaluation of difficulty breathing and cough. The patient was trying to manage his significant other who had a major stroke around [facility]. She today and his family members were very concerned about his ongoing difficulty breathing and cough and were able to convince him to come to the emergency department today for an evaluation. The patient had a fever as well as tachypnea. He was also found to have hypoxia. His chest x-ray and work-up appear to be consistent with COVID-19. He did have a productive cough which could be atypical so he was treated with antibiotics for possible community- acquired pneumonia as well. He was reevaluated multiple times. I discussed the patient's condition with him as well as his daughter. I also discussed his case with the on-call [facility] hospitalist. They have agreed to evaluate the patient in the emergency department. Triage Nursing notes reviewed. Prior medical records reviewed Vital Signs: reviewed and remarkable for hypoxia, tachypnea, fever Differential diagnosis: Reactive airway disease, pneumonia, pneumothorax, COPD, CHF, infections, cardiac ischemia, pulmonary embolism, musculoskeletal, gastrointestinal, as well as other pathologies. ER treatment provided: See below Diagnostics interpreted by me: ECG: EKG was obtained in the emergency department. My interpretation is sinus rhythm at 85 bpm. PVCs were noted. There was no acute ST segment abnormalities noted. LVH was noted by voltage criteria. This was compared to a tracing from June 152009. No significant changes were noted. Cardiac Monitoring: An order was placed for continuous cardiac monitoring. The monitor shows a rate of 85 bpm with sinus rhythm. Laboratory studies: As stated above and show below. Imaging studies: See below Consultation(s): 2030: I discussed this case with Dr. Pete. He is agreed to evaluate the patient in the emergency department. 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 BPH w/o urinary obs/LUTS Closed head injury Concussion Coronary atherosclerosis of [place] coronary vessel Essential hematuria Heart trouble History of basal cell carcinoma History of SCC (squamous cell carcinoma) of skin Lentigines Neoplasm of uncertain behavior of skin Ocular hypertension, unspecified eye Peripheral vascular disease, unspecified Seborrheic keratosis Urinary urgency Surgical History Aortocoronary bypass status Social History Smoking Status: Never smoker Tobacco Type: Cigarettes Feels Safe at Home: Yes Allergies Allergies Allergy/AdvReac Type Severity Reaction Status Date / Time rosuvastatin AdvReac Unknown joint pain Verified 07/23/20 19:39 Home Meds Home Medications Medication Instructions Recorded Confirmed amlodipine 2.5 mg PO DAILY 09/09/18 07/23/20 aspirin [Aspirin Low Dose] 81 mg PO DAILY 09/09/18 07/23/20 atorvastatin 40 mg PO DAILY 09/09/18 07/23/20 nitroglycerin 0.4 mg SUBLINGUAL DIRECTED 09/09/18 07/23/20 acetaminophen 650 mg 650 mg PO Q12H PRN 06/01/19 07/23/20 tablet,extended release telmisartan 20 mg tablet 20 mg PO DAILY 06/01/19 07/23/20 metoprolol succinate 25 mg 12.5 mg PO DAILY tab 06/30/19 07/23/20 tablet,extended release 24 hr Results & Data (ED) Vital Signs Vital Signs - 24 hr 07/23/20 17:51 07/23/20 18:22 07/23/20 18:30 Temperature 37.6 C H Temperature Source Oral Pulse Rate 102 H 82 Pulse Rate [Apical] 83 Pulse Rate from SpO2 Sensor 80 Respiratory Rate 20 20 22 Respiratory Effort / Characteristics Non-Labored Spontaneous Non-Labored Spontaneous Respiratory Depth Normal Normal Respiratory Pattern Regular Regular Blood Pressure 130/62 124/63 Blood Pressure [Right Arm] 125/60 Blood Pressure Mean 84 81 Blood Pressure Mean [Right Arm] 81 Blood Pressure Position [Right Arm] Lying Pulse Oximetry 84 L 100 98 Oxygen Delivery Method Room Air Nasal Cannula Nasal Cannula Oxygen Flow Rate 4 3 Sepsis Recent Fever Within 48 Hours Yes Sepsis New/Unexplained Change in Mental Status N/A Sepsis Action Taken by Nursing No Action Required 07/23/20 18:32 07/23/20 19:00 07/23/20 19:30 Temperature Temperature Source Pulse Rate 82 84 Pulse Rate [Apical] Pulse Rate from SpO2 Sensor Respiratory Rate 26 H 24 Respiratory Effort / Characteristics Respiratory Depth Respiratory Pattern Blood Pressure 121/58 L 123/59 L Blood Pressure [Right Arm] Blood Pressure Mean 86 75 Blood Pressure Mean [Right Arm] Blood Pressure Position [Right Arm] Pulse Oximetry 100 98 99 Oxygen Delivery Method Nasal Cannula Nasal Cannula Nasal Cannula Oxygen Flow Rate 4 3 3 Sepsis Recent Fever Within 48 Hours Sepsis New/Unexplained Change in Mental Status Sepsis Action Taken by Nursing 07/23/20 20:00 Temperature Temperature Source Pulse Rate 82 Pulse Rate [Apical] Pulse Rate from SpO2 Sensor Respiratory Rate 26 H Respiratory Effort / Characteristics Respiratory Depth Respiratory Pattern Blood Pressure 112/54 L Blood Pressure [Right Arm] Blood Pressure Mean 74 Blood Pressure Mean [Right Arm] Blood Pressure Position [Right Arm] Pulse Oximetry 97 Oxygen Delivery Method Nasal Cannula Oxygen Flow Rate 3 Sepsis Recent Fever Within 48 Hours Sepsis New/Unexplained Change in Mental Status Sepsis Action Taken by [facility] Medications Current Medication List: was personally reviewed by me Laboratory Data Attestation: I reviewed the patient's lab results. Result diagrams: 07/23/20 18:25 07/23/20 18:25 Lab Results 07/23/20 07/23/20 07/23/20 Range/Units 18:25 18:25 18:25 WBC 5.22 (4.8-10.8) K/uL RBC 3.93 L (4.7-6.1) M/uL Hgb 13.8 L (14.0-18.0) g/dL Hct 40.2 L (42-52) % MCV 102.3 H (80-100) fL MCH 35.1 H (25-34) pg MCHC 34.3 (32-36) g/dL RDW Std Deviation 50.1 H (36.4-46.3) fL RDW Coeff of Humberto 13.4 (11.5-14.5) % Plt Count 143 (130-400) K/uL MPV 11.9 H (7.4-10.4) fL Immature Gran % (Auto) 0.4 % Neut % (Auto) 69.3 % Lymph % (Auto) 22.4 % [place] % (Auto) 6.9 % Eos % (Auto) 0.8 % Baso % (Auto) 0.2 % Neut # (Auto) 3.62 (1.4-6.5) K/uL Lymph # (Auto) 1.17 L (1.2-3.4) K/uL [place] # (Auto) 0.36 (0.11-0.59) K/uL Eos # (Auto) 0.04 (0-0.5) K/uL Baso # (Auto) 0.01 (0-0.2) K/uL Immature Gran # (Auto) 0.02 (0.00-0.02) K/uL PT Cancelled INR Cancelled APTT Cancelled PTT Ratio Cancelled D-Dimer Cancelled VBG pH (7.36-7.41) VBG pCO2 (38-50) mmHg VBG pO2 mmHg VBG HCO3 mmol/L VBG O2 Saturation % VBG Base Excess mEq/L Barometric Pressure mm/Hg Sodium 139 (136-145) mmol/L Potassium 4.4 (3.5-5.1) mmol/L Chloride 107 (98-107) mmol/L Carbon Dioxide 27 (21-32) mmol/L Anion Gap 5.0 (3-11) BUN 42 H (7-18) mg/dl Creatinine 1.70 H (0.6-1.4) mg/dl Est Cr Clr Drug Dosing 26.6 ml/min Est GFR ( Amer) 40.5 Est GFR (Non-Af Amer) 35.0 BUN/Creatinine Ratio 24.7 H (10-20) Glucose 93 (70-99) mg/dl Lactate (0.4-2.0) mmol/L Calcium 8.3 L (8.5-10.1) mg/dl Magnesium 2.4 (1.8-2.4) mg/dl Total Bilirubin 1.4 H (0.2-1) mg/dl AST 47 H (15-37) U/L ALT 30 (12-78) U/L Alkaline Phosphatase 93 (45-117) U/L Troponin I 0.024 (0-0.045) ng/ml NT-Pro-B Natriuret Pep 218 (0-1800) pg/ml Total Protein 7.4 (6.4-8.2) gm/dl Albumin 3.3 L (3.4-5.0) gm/dl Globulin 4.1 H (2.5-4.0) gm/dl Albumin/Globulin Ratio 0.8 L (0.9-2) Procalcitonin Specimen Hemolysis COVID-19 Eval Order SARS-CoV-2, RNA, NAAT (NEGATIVE) Blood Type Antibody Screen 07/23/20 07/23/20 07/23/20 Range/Units 18:25 18:25 18:25 WBC (4.8-10.8) K/uL RBC (4.7-6.1) M/uL Hgb (14.0-18.0) g/dL Hct (42-52) % MCV (80-100) fL MCH (25-34) pg MCHC (32-36) g/dL RDW Std Deviation (36.4-46.3) fL RDW Coeff of Humberto (11.5-14.5) % Plt Count (130-400) K/uL MPV (7.4-10.4) fL Immature Gran % (Auto) % Neut % (Auto) % Lymph % (Auto) % [place] % (Auto) % Eos % (Auto) % Baso % (Auto) % Neut # (Auto) (1.4-6.5) K/uL Lymph # (Auto) (1.2-3.4) K/uL [place] # (Auto) (0.11-0.59) K/uL Eos # (Auto) (0-0.5) K/uL Baso # (Auto) (0-0.2) K/uL Immature Gran # (Auto) (0.00-0.02) K/uL PT INR APTT PTT Ratio D-Dimer VBG pH (7.36-7.41) VBG pCO2 (38-50) mmHg VBG pO2 mmHg VBG HCO3 mmol/L VBG O2 Saturation % VBG Base Excess mEq/L Barometric Pressure mm/Hg Sodium (136-145) mmol/L Potassium (3.5-5.1) mmol/L Chloride (98-107) mmol/L Carbon Dioxide (21-32) mmol/L Anion Gap (3-11) BUN (7-18) mg/dl Creatinine (0.6-1.4) mg/dl Est Cr Clr Drug Dosing ml/min Est GFR ( Amer) Est GFR (Non-Af Amer) BUN/Creatinine Ratio (10-20) Glucose (70-99) mg/dl Lactate (0.4-2.0) mmol/L Calcium (8.5-10.1) mg/dl Magnesium (1.8-2.4) mg/dl Total Bilirubin (0.2-1) mg/dl AST (15-37) U/L ALT (12-78) U/L Alkaline Phosphatase (45-117) U/L Troponin I (0-0.045) ng/ml NT-Pro-B Natriuret Pep (0-1800) pg/ml Total Protein (6.4-8.2) gm/dl Albumin (3.4-5.0) gm/dl Globulin (2.5-4.0) gm/dl Albumin/Globulin Ratio (0.9-2) Procalcitonin Cancelled Specimen Hemolysis COVID-19 Eval [facility] SARS-CoV-2, RNA, NAAT POSITIVE A* (NEGATIVE) Blood Type Antibody Screen 07/23/20 07/23/20 07/23/20 Range/Units 18:49 18:49 18:49 WBC (4.8-10.8) K/uL RBC (4.7-6.1) M/uL Hgb (14.0-18.0) g/dL Hct (42-52) % MCV (80-100) fL MCH (25-34) pg MCHC (32-36) g/dL RDW Std Deviation (36.4-46.3) fL RDW Coeff of Humberto (11.5-14.5) % Plt Count (130-400) K/uL MPV (7.4-10.4) fL Immature Gran % (Auto) % Neut % (Auto) % Lymph % (Auto) % [place] % (Auto) % Eos % (Auto) % Baso % (Auto) % Neut # (Auto) (1.4-6.5) K/uL Lymph # (Auto) (1.2-3.4) K/uL [place] # (Auto) (0.11-0.59) K/uL Eos # (Auto) (0-0.5) K/uL Baso # (Auto) (0-0.2) K/uL Immature Gran # (Auto) (0.00-0.02) K/uL PT INR APTT PTT Ratio D-Dimer VBG pH 7.68 H (7.36-7.41) VBG pCO2 35 L (38-50) mmHg VBG pO2 26 mmHg VBG HCO3 40 mmol/L VBG O2 Saturation < 60.0 % VBG Base Excess 18.7 mEq/L Barometric Pressure 732.9 mm/Hg Sodium (136-145) mmol/L Potassium (3.5-5.1) mmol/L Chloride (98-107) mmol/L Carbon Dioxide (21-32) mmol/L Anion Gap (3-11) BUN (7-18) mg/dl Creatinine (0.6-1.4) mg/dl Est Cr Clr Drug Dosing ml/min Est GFR ( Amer) Est GFR (Non-Af Amer) BUN/Creatinine Ratio (10-20) Glucose (70-99) mg/dl Lactate 1.7 (0.4-2.0) mmol/L Calcium (8.5-10.1) mg/dl Magnesium (1.8-2.4) mg/dl Total Bilirubin (0.2-1) mg/dl AST (15-37) U/L ALT (12-78) U/L Alkaline Phosphatase (45-117) U/L Troponin I (0-0.045) ng/ml NT-Pro-B Natriuret Pep (0-1800) pg/ml Total Protein (6.4-8.2) gm/dl Albumin (3.4-5.0) gm/dl Globulin (2.5-4.0) gm/dl Albumin/Globulin Ratio (0.9-2) Procalcitonin Specimen Hemolysis COVID-19 Eval Order SARS-CoV-2, RNA, NAAT (NEGATIVE) Blood Type O Positive Antibody Screen NEGATIVE Administered Medications Azithromycin 500 mg/ Dextrose 255 mls @ 127.5 mls/hr IV NOW STA Stop: 07/23/20 21:15 Last Admin: 07/23/20 20:23 Dose: 127.5 mls/hr Documented by: [id number] Sodium Chloride (Nss 1000ml) 1,000 mls @ 60 mls/hr IV .[id number] ONE Stop: 07/24/20 13:01 Last Admin: 07/23/20 20:40 Dose: 60 mls/hr Documented by: [id number] Discontinued Medications Acetaminophen (Acetaminophen 325 Mg Tab) 650 mg PO NOW STA Stop: 07/23/20 20:20 Last Admin: 07/23/20 20:39 Dose: 650 mg Documented by: [id number] Albuterol (Albuterol Hfa 8 Gm Inhaler) 2 puffs INH NOW ONE Stop: 07/23/20 20:20 Last Admin: 07/23/20 20:39 Dose: 2 puffs Documented by: [id number] Dexamethasone (Dexamethasone Sod Inj 10 Mg/Ml Vial) 10 mg IV NOW ONE Stop: 07/23/20 19:17 Last Admin: 07/23/20 19:39 Dose: 10 mg Documented by: [id number] Ceftriaxone Sodium (Rocephin) 1,000 mg in 50 mls @ 100 mls/hr IV NOW STA Stop: 07/23/20 19:45 Last Infusion: 07/23/20 20:09 Dose: 0 mls/hr Documented by: [id number] Admin: 07/23/20 19:39 Dose: 100 mls/hr Documented by: [id number] Imaging Data Radiologist's Impression: Patient: TEMI COBOS Admit Date: 07/23/20 MR#: [id number] Address1: [address] Acct ID:[id number] Address2: Date: 1930 [facility] Zip: [place] [address] Age: 89 Location: ED Sex: M Room/Bed: Att Phy: Diagnosis: LOW OXYGEN LEVEL - LOW GRADE FEVER - COUGH Jackie Phy: Lew Paez MD Service Date: 07/23/20 Fam Phy: Interpreting Phy: James Crouch MD Admit Phy: Ordering Phy: Sourav Salazar DO cc: ~ XR chest 1V portable CLINICAL HISTORY: SEPSIS COMPARISON STUDY: Chest radiograph September 09, 2018. FINDINGS: Lung volumes are normal. There is no pneumothorax or pleural effusion. There is mild cardiomegaly. Mediastinal surgical clips are noted. There are bibasilar opacities, greater on the left. IMPRESSION: Bibasilar opacities, greater on the left. The findings favor an infectious process. Radiographic follow-up is recommended. ACT 112: Negative or not required by law. Electronically signed by: James Crouch M.D. 07/23/2020 7:08 PM Dictated: 07/23/201906 Transcribed: 07/23/201906 Blood Pressure Blood Pressure Findings: Normal blood pressure Discharge Plan Visit Data Chief Complaint: Fever Stated Complaint: LOW OXYGEN LEVEL - LOW GRADE FEVER - COUGH ED Provider: Sourav Salazar Discharge Problem: Pneumonia due to 2019 novel coronavirus, Hypoxia Patient Disposition: Being Evaluated by Hospitalist Condition: Good Forms Stand Alone Forms: My [facility] Prescriptions Prescriptions: No Action telmisartan [Micardis] 20 mg tablet 20 mg PO DAILY RF: 0 acetaminophen [Tylenol Arthritis Pain] 650 mg tablet extended release 650 mg PO Q12H PRN (Reason: Pain) RF: 0 metoprolol succinate 25 mg tablet extended release 24 hr 12.5 mg PO DAILY RF: 0 atorvastatin 40 mg Tablet 40 mg PO DAILY RF: 0 amlodipine 2.5 mg Tablet 2.5 mg PO DAILY RF: 0 aspirin [Aspirin Low Dose] 81 mg Tablet,Delayed Release (Dr/Ec) 81 mg PO DAILY RF: 0 nitroglycerin 0.4 mg Tablet, Sublingual 0.4 mg Sublingual DIRECTED RF: 0 Referrals Referrals: Lew Paez MD [Primary Care Provider] -
[2020-07-23] MEDS ORDERED: cefTRIAXone SODIUM 1,000 MG/50 ML BAG IV STA (19:16)
[2020-07-23] MEDS ORDERED: DEXAMETHASONE SOD INJ 10 MG/ML VIAL IV ONE (19:16)
[2020-07-23] MEDS ORDERED: AZITHROMYCIN 500 MG in DEXTROSE 5% 250 ML IV STA (19:16)
[2020-07-23] MEDS ORDERED: ACETAMINOPHEN 325 MG TAB PO STA (20:19)
[2020-07-23] MEDS ORDERED: ALBUTEROL HFA 8 GM INHALER INH ONE (20:19)
[2020-07-23] MEDS ORDERED: SODIUM CHLORIDE 0.9% 1000ML 1,000 ML IV ONE (20:22)
[2020-07-23 21:04] LABS: Appearance Urine Clear (Clear); Bacteria Urine Automated Negative (Negative); Bilirubin Urine Negative (Negative); Blood Urine Trace (Negative); Color Urine Yellow; Glucose Urine UA Negative (Negative); Ketones Urine Trace (Negative); Leukocyte Esterase Urine Negative (Negative); Nitrite Urine Negative (Negative); Protein Urine 1+ (Negative); Specific Gravity Urine 1.024 (1.000-1.030); Urobilinogen Urine Negative (Negative)
--- NOTE | 2020-07-23 21:07 | History & Physical Report ---
Date of Service July 23, 2020 Assessment & Plan (1) Acute hypoxemic respiratory failure due to severe acute respiratory syndrome coronavirus 2 (SARS-CoV-2) disease: Sepsis secondary to secondary bacterial infection ARF on CKD, clinical dehydration secondary to illness hx CAD status post CABG/PVD as per records Hypertension, BP on the lower side Medical telemetry Supplemental O2 Cultures, Ceftriaxone, Doxycycline Decadron course Hold Remdesivir for now given kidney dysfunction and slight LFT elevation Monitor creatinine response to IVF Hold ARB for now until creatinine back to baseline DVT prophylaxis Heparin subcu DNR Patient's daughter requesting updates from providers. Ms. Lucie Grant, contact numbers [phone]. Text document was generated using [employer] voice recognition software. It may contain grammatical or spelling errors. Kindly contact undersigned for clarification of any documentation item in question. History of Present Illness Chief Complaint: Cough, shortness of breath Primary Care Provider: Lew Paez MD History obtained from patient, family, and records. Medical history significant for CAD status post CABG, PVD as per records, hypertension, BPH, CRI (baseline creatinine 1.5). 1 week history of nasal drainage progressing to dry cough symptoms later productive of junky dark sputum. No known COVID-19 exposure although patient made a trip to [facility] for his ailing who passed today. Worsening shortness of breath on exertion noted today at home. At the ER, patient given Ceftriaxone and Azithromycin for sepsis. Medical History as above Surgical History :, Knee surgery, cataract surgery, hernia repair, finger replantation, vasectomy Family History : Heart disease, pancreatic cancer, diabetes Personal/Social history : Non-smoker, no EtOH intake, retired factory employee Allergies Allergy/AdvReac Type Severity Reaction Status Date / Time rosuvastatin AdvReac Unknown joint pain Verified 07/23/20 19:39 Home Medications Medication Instructions Recorded Confirmed Type amlodipine 2.5 mg PO DAILY 09/09/18 07/23/20 History aspirin [Aspirin Low Dose] 81 mg PO DAILY 09/09/18 07/23/20 History atorvastatin 40 mg PO DAILY 09/09/18 07/23/20 History nitroglycerin 0.4 mg SUBLINGUAL DIRECTED 09/09/18 07/23/20 History acetaminophen 650 mg 650 mg PO Q12H PRN 06/01/19 07/23/20 History tablet,extended release telmisartan 20 mg tablet 20 mg PO DAILY 06/01/19 07/23/20 History metoprolol succinate 25 mg 12.5 mg PO DAILY tab 06/30/19 07/23/20 History tablet,extended release 24 hr 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 BPH w/o urinary obs/LUTS Closed head injury Concussion Coronary atherosclerosis of [place] coronary vessel Essential hematuria Heart trouble History of basal cell carcinoma History of SCC (squamous cell carcinoma) of skin Lentigines Neoplasm of uncertain behavior of skin Ocular hypertension, unspecified eye Peripheral vascular disease, unspecified Seborrheic keratosis Urinary urgency Surgical History Aortocoronary bypass status Social History Smoking Status: Never smoker Tobacco Type: Cigarettes Feels Safe at Home: Yes Review of Systems Review of Systems: As per HPI, all 10 systems reviewed, all other ROS negative Physical Exam Physical Exam: GENERAL: Comfortable, slightly irate, mild hearing impairment, no respiratory distress SKIN: Normal color, warm HEENT: Bespectacled, [place] palpebral conjunctivae, no ptosis, dry buccal mucosa, nasal cannula in place NECK : Supple, no tenderness CHEST : Decreased breath sounds, occasional expiratory wheezes, no tenderness HEART : RRR, no obvious murmurs ABDOMEN: Some distention, nontender EXTREMITIES : No LE swelling/tenderness, no other conspicuous deformities noted NEUROLOGIC : Coherent, no facial asymmetry, mild hearing impairment, no other gross focality Results & Data Results & Data ([facility]) Vital Signs (Past 12 Hours) Vital Signs Temp Pulse Pulse Resp BP BP Pulse Ox 07/23/20 20:30 80 22 121/66 90 07/23/20 20:00 82 26 H 112/54 L 97 07/23/20 19:30 84 24 123/59 L 99 07/23/20 19:00 82 26 H 121/58 L 98 07/23/20 18:32 100 07/23/20 18:30 82 22 124/63 98 07/23/20 18:22 83 20 125/60 100 07/23/20 17:51 37.6 C H 102 H 20 130/62 84 L Laboratory Results Laboratory Results WBC 5.22 K/uL (4.8-10.8) 07/23/20 18:25 RBC 3.93 M/uL (4.7-6.1) L 07/23/20 18:25 Hgb 13.8 g/dL (14.0-18.0) L 07/23/20 18:25 Hct 40.2 % (42-52) L 07/23/20 18:25 MCV 102.3 fL (80-100) H 07/23/20 18:25 MCH 35.1 pg (25-34) H 07/23/20 18: MCHC 34.3 g/dL (32-36) 07/23/20 18:25 RDW Std Deviation 50.1 fL (36.4-46.3) H 07/23/20 18: RDW Coeff of Humberto 13.4 % (11.5-14.5) 07/23/20 18: Plt Count 143 K/uL (130-400) 07/23/20 18: MPV 11.9 fL (7.4-10.4) H 07/23/20 18:25 Immature Gran % (Auto) 0.4 % 07/23/20 18:25 Neut % (Auto) 69.3 % 07/23/20 18:25 Lymph % (Auto) 22.4 % 07/23/20 18:25 [place] % (Auto) 6.9 % 07/23/20 18:25 Eos % (Auto) 0.8 % 07/23/20 18:25 Baso % (Auto) 0.2 % 07/23/20 18:25 Neut # (Auto) 3.62 K/uL (1.4-6.5) 07/23/20 18:25 Lymph # (Auto) 1.17 K/uL (1.2-3.4) L 07/23/20 18:25 [place] # (Auto) 0.36 K/uL (0.11-0.59) 07/23/20 18:25 Eos # (Auto) 0.04 K/uL (0-0.5) 07/23/20 18:25 Baso # (Auto) 0.01 K/uL (0-0.2) 07/23/20 18:25 Immature Gran # (Auto) 0.02 K/uL (0.00-0.02) 07/23/20 18:25 PT Cancelled 07/23/20 18:25 INR Cancelled 07/23/20 18:25 APTT Cancelled 07/23/20 18:25 PTT Ratio Cancelled 07/23/20 18:25 D-Dimer Cancelled 07/23/20 18:25 VBG pH 7.68 (7.36-7.41) H 07/23/20 18:49 VBG pCO2 35 mmHg (38-50) L 07/23/20 18:49 VBG pO2 26 mmHg 07/23/20 18:49 VBG HCO3 40 mmol/L 07/23/20 18:49 VBG O2 Saturation < 60.0 % 07/23/20 18:49 VBG Base Excess 18.7 mEq/L 07/23/20 18:49 Barometric Pressure 732.9 mm/Hg 07/23/20 18:49 Sodium 139 mmol/L (136-145) 07/23/20 18:25 Potassium 4.4 mmol/L (3.5-5.1) 07/23/20 18:25 Chloride 107 mmol/L (98-107) 07/23/20 18:25 Carbon Dioxide 27 mmol/L (21-32) 07/23/20 18:25 Anion Gap 5.0 (3-11) 07/23/20 18:25 BUN 42 mg/dl (7-18) H 07/23/20 18:25 Creatinine 1.70 mg/dl (0.6-1.4) H 07/23/20 18:25 Est Cr Clr Drug Dosing 26.6 ml/min 07/23/20 18:25 Est GFR ( Amer) 40.5 07/23/20 18:25 Est GFR (Non-Af Amer) 35.0 07/23/20 18:25 BUN/Creatinine Ratio 24.7 (10-20) H 07/23/20 18:25 Glucose 93 mg/dl (70-99) 07/23/20 18:25 Lactate 1.7 mmol/L (0.4-2.0) 07/23/20 18:49 Calcium 8.3 mg/dl (8.5-10.1) L 07/23/20 18:25 Magnesium 2.4 mg/dl (1.8-2.4) 07/23/20 18:25 Total Bilirubin 1.4 mg/dl (0.2-1) H 07/23/20 18:25 AST 47 U/L (15-37) H 07/23/20 18:25 ALT 30 U/L (12-78) 07/23/20 18:25 Alkaline Phosphatase 93 U/L (45-117) 07/23/20 18:25 Troponin I 0.024 ng/ml (0-0.045) 07/23/20 18:25 NT-Pro-B Natriuret Pep 218 pg/ml (0-1800) 07/23/20 18: Total Protein 7.4 gm/dl (6.4-8.2) 07/23/20 18:25 Albumin 3.3 gm/dl (3.4-5.0) L 07/23/20 18:25 Globulin 4.1 gm/dl (2.5-4.0) H 07/23/20 18:25 Albumin/Globulin Ratio 0.8 (0.9-2) L 07/23/20 18:25 Procalcitonin Cancelled 07/23/20 18:25 Specimen Hemolysis 07/23/20 18:25 Urine Color Yellow 07/23/20 20: Urine Appearance Clear (Clear) 07/23/20: Urine pH 5.0 (4.5-7.5) 07/23/20: Ur Specific [place] 1.024 (1.000-1.030) 07/23/20 20: Urine Protein 1+ (Negative) H 07/23/20 20: Urine Glucose (UA) Negative (Negative) 07/23/20 20: Urine Ketones Trace (Negative) H 07/23/20 20: Urine Blood Trace (Negative) H 07/23/20: Urine Nitrite Negative (Negative) 07/23/20 20: Urine Bilirubin Negative (Negative) 07/23/20 20: Urine Urobilinogen Negative (Negative) 07/23/20 20: Ur Leukocyte Esterase Negative (Negative) 07/23/20 20: Urine WBC (Auto) 1-5 /hpf (0-5) 07/23/20 20:28 Urine RBC (Auto) 5-10 /hpf (0-4) H 07/23/20 20:28 U Hyaline Cast (Auto) 1-5 /lpf (0-5) 07/23/20 20:28 U Epithel Cells (Auto) 10-20 /lpf (0-5) H 07/23/20 20:28 Urine Bacteria (Auto) Negative (Negative) 07/23/20 20:28 [facility] 07/23/20 18:25 SARS-CoV-2, RNA, NAAT POSITIVE (NEGATIVE) A* 07/23/20 18:25 Blood Type O Positive 07/23/20 18:49 Antibody Screen NEGATIVE 07/23/20 18:49 Diagnostic Findings Chest x-ray : Bibasilar opacities, greater on the left. The findings favor an infectious process. Radiographic follow-up is recommended. EKG as per my interpretation : Rate 85, NSR, normal axis, 1 AVB, LVH, PVCs
[2020-07-23] MEDS ORDERED: traMADol HCL 50 MG TABLET PO PRN (23:55)
[2020-07-23] MEDS ORDERED: DOXYCYCLINE HYCLATE 100 MG in DEXTROSE 5% 100 ML IV STA (23:55)
[2020-07-23] MEDS ORDERED: ACETAMINOPHEN 325 MG TAB PO PRN (23:55)
[2020-07-23] MEDS ORDERED: PROMETHAZINE HCL 6.25 MG in SODIUM CHLORIDE 0.9% 50 ML IV PRN (23:55)
[2020-07-24 06:38] LABS: Hematocrit (blood only) 36.9 % (42-52); Hemoglobin 12.9 g/dL (14.0-18.0); Mean Corpuscular Hemoglobin 35.2 pg (25-34); Mean Corpuscular Volume 100.8 fL (80-100); Mean Platelet Volume 11.9 fL (7.4-10.4); Platelet Count 148 K/uL (130-400); RDW Coefficient of Variation 13.1 % (11.5-14.5); RDW Standard Deviation 47.9 fL (36.4-46.3); Red Blood Count 3.66 M/uL (4.7-6.1); White Blood Count 1.39 K/uL (4.8-10.8)
[2020-07-24 06:47] LABS: INR 1.1 (0.9-1.1); Prothrombin Time 11.2 Seconds (9.0-12.0)
[2020-07-24] MEDS ORDERED: ALBUTEROL HFA 8 GM INHALER INH SCH (07:00)
[2020-07-24 07:12] LABS: Albumin Level 2.7 gm/dl (3.4-5.0); BUN Creatinine Ratio 29.8 (10-20); Creatinine Clr Calc Pharmacy 35.3 ml/min; Est GFR (African American) 57.1; Est GFR (Non-African American) 49.3; Potassium 4.2 mmol/L (3.5-5.1)
[2020-07-24 07:27] LABS: RBC Morphology Unremarkable
[2020-07-24 07:29] LABS: ALC (manual) 0.63 K/uL (1.2-3.4); ANC (manual) 0.76 K/uL (1.4-6.5); Albumin Globulin Ratio 0.7 (0.9-2); Ferritin 2648.8 ng/ml (8-388); Globulin 3.7 gm/dl (2.5-4.0); Lymphocytes # (manual) 0.18 K/uL (1.2-3.4); Neutrophils # (manual) 0.76 K/uL (1.4-6.5); Neutrophils % (manual) 54.8 %; Reactive Lymphocytes # (manual) 0.45 K/uL; Reactive Lymphocytes % (manual) 32.2 %; Total Protein 6.4 gm/dl (6.4-8.2)
[2020-07-24] MEDS ORDERED: dexAMETHasone 6 MG in DEXTROSE 5% 25 ML IV SCH (09:00)
--- NOTE | 2020-07-24 09:14 | Electrocardiogram Report ---
Test Reason : Blood Pressure : / mmHG Vent. Rate : 085 BPM Atrial Rate : 085 BPM P-R Int : 234 ms QRS Dur : 096 ms QT Int : 344 ms P-R-T Axes : 047 -11 049 degrees QTc Int : 409 ms Sinus rhythm with sinus arrhythmia with 1st degree A-V block with occasional Premature ventricular co mplexes Minimal voltage criteria for LVH, may be normal variant Borderline ECG When compared with ECG of 15-JUN-2016 21:44, Premature ventricular complexes are now Present Vent. rate has increased BY 28 BPM Confirmed by Sourav Thomas ([id number]) on 07/24/2020 9:14:07 AM Referred By: REFERRED SELF Confirmed By:Sourav Thomas
[2020-07-24] MEDS: METOPROLOL SUCC 25MG EXT REL TAB PO SCH (09:37)
[2020-07-24] MEDS: amLODIPine BESYLATE 5 MG TAB PO SCH (09:37)
[2020-07-24] MEDS: ASPIRIN 81 MG ECTAB PO SCH (09:37)
[2020-07-24] MEDS: DOXYCYCLINE HYCLATE 100 MG CAP PO SCH ×2 (09:37→20:24)
[2020-07-24] MEDS: DEXAMETHASONE SOD PHOSPHATE 6 MG in SYRINGE 0 ML IV SCH (09:38)
[2020-07-24] MEDS ORDERED: ALBUTEROL HFA 8 GM INHALER INH PRN (10:25)
--- NOTE | 2020-07-24 18:17 | Hospitalist Progress Note ---
Date of Service July 24, 2020 Assessment & Plan (1) Acute hypoxemic respiratory failure due to severe acute respiratory syndrome coronavirus 2 (SARS-CoV-2) disease: COVID 19 pneumonia CXR showed bibasilar opacities, greater on the left. Procalcitonin on admission negative Elevated inflammatory markers with ferritin 2648, ESR 35, LDH 285, CRP 3.66 Did not meet criteria for Remdesivir and plasma convalescent since pt saturated at 95% on RA Received dexamethasone on admission, but will consider to stop on discharge since pt has not required any oxygen supplement since during admission Received IV Ceftriaxone and Azithromycin in the ER Blood cx pending Will monitor inflammatory markers Continue abx with doxycycline and ceftriaxone Continue monitor closely YORDY on CKD Creatinine on admission 1.7 Received IVF, creatinine 1.2 today Continue monitor BMP Elevated AST AST on admission 47 Possible related to acute illness AST 27 today Continue to avoid hepatotoxic agents Resolved Hx CAD status post CABG/PVD as per records Continue aspirin, statin and metoprolol denies any chest pain Hypertension Continue metoprolol and amlodipine Continue to hold Telmisartan due to elevate creatinine BP stable DVT prophylaxis on Heparin subcu CODE Status DNR Patient's daughter requesting updates from providers. Ms. Lucie Grant, contact numbers [phone] Disposition Possible discharge tomorrow Updates provided to daughter Rudy over the phone Admission and Anticipated Discharge Date Admission Date: July 23, 2020 Subjective Pt was seen and examined for follow up of COVID 19 Pneumonia Sitting in bed comfortable with no distress Pt is upset because her daughter made hi come to the hospital He wants to go home. He said that he would work out of the hospital He said that he feels ok He is saturated well on RA Spoke to daughter today and provided with updates Denies any chest pain, palpitation, dizziness and SOB Physical Exam Physical Exam: General- No acute distress Head- atraumatic Eyes- PERRL, EOMI, ENT- mild decrease hearing function Neck- supple, no JVD Lungs- clear to auscultation Heart- regular rhythm; no murmur Abdomen- normal bowel sounds, soft, nontender Extremities- no calf tenderness Neuro- alert, oriented x 3; PERRL, EOMI; no facial palsy; no dysarthria Skin- warm & dry Results & Data Results & Data ([facility]) Vital Signs (Past 12 Hours) Vital Signs Temp Pulse Pulse Resp BP Pulse Ox 07/24/20 15:49 36.4 C L 66 20 135/56 L 92 07/24/20 12:03 36.5 C 66 20 137/61 90 07/24/20 08:05 36.9 C 66 18 119/56 L 91 07/24/20 08:00 61 71 18 92
[2020-07-24] MEDS ORDERED: cefTRIAXone SODIUM 2,000 MG in DEXTROSE 5% 50 ML IV SCH (20:00)
[2020-07-25] MEDS: METOPROLOL SUCC 25MG EXT REL TAB PO SCH (08:40)
[2020-07-25] MEDS: ASPIRIN 81 MG ECTAB PO SCH (08:40)
[2020-07-25] MEDS: amLODIPine BESYLATE 5 MG TAB PO SCH (08:40)
[2020-07-25] MEDS: DOXYCYCLINE HYCLATE 100 MG CAP PO SCH (08:40)
[2020-07-25] MEDS: DEXAMETHASONE SOD PHOSPHATE 6 MG in SYRINGE 0 ML IV SCH (08:41)
--- NOTE | 2020-07-25 15:07 | Discharge Summary ---
Date of Service July 25, 2020 Admission HPI Per Admitting Provider History obtained from patient, family, and records. Medical history significant for CAD status post CABG, PVD as per records, hypertension, BPH, CRI (baseline creatinine 1.5). 1 week history of nasal drainage progressing to dry cough symptoms later productive of junky dark sputum. No known COVID-19 exposure although patient made a trip to [facility] for his ailing who passed today. Worsening shortness of breath on exertion noted today at home. At the ER, patient given Ceftriaxone and Azithromycin for sepsis. Medical History as above Surgical History :, Knee surgery, cataract surgery, hernia repair, finger replantation, vasectomy Family History : Heart disease, pancreatic cancer, diabetes Personal/Social history : Non-smoker, no EtOH intake, retired factory employee Admission Exam Per Admitting Provider GENERAL: Comfortable, slightly irate, mild hearing impairment, no respiratory distress SKIN: Normal color, warm HEENT: Bespectacled, [place] palpebral conjunctivae, no ptosis, dry buccal mucosa, nasal cannula in place NECK : Supple, no tenderness CHEST : Decreased breath sounds, occasional expiratory wheezes, no tenderness HEART : RRR, no obvious murmurs ABDOMEN: Some distention, nontender EXTREMITIES : No LE swelling/tenderness, no other conspicuous deformities noted NEUROLOGIC : Coherent, no facial asymmetry, mild hearing impairment, no other gross focality Principal Diagnosis COVID 19 pneumonia Acute kidney injury Mild Elevated liver enzymes Hx CAD Hypertension Discharge Exam General- No acute distress Head- atraumatic Eyes- PERRL, EOMI, ENT- mild decrease hearing function Neck- supple, no JVD Lungs- clear to auscultation Heart- regular rhythm; no murmur Abdomen- normal bowel sounds, soft, nontender Extremities- no calf tenderness Neuro- alert, oriented x 3; PERRL, EOMI; no facial palsy; no dysarthria Skin- warm & d Discharge Data Allergies Allergy/AdvReac Type Severity Reaction Status Date / Time rosuvastatin AdvReac Unknown joint pain Verified 07/23/20 19:39 Ordered Studies XR chest 1V portable CLINICAL HISTORY: SEPSIS COMPARISON STUDY: Chest radiograph September 09, 2018. FINDINGS: Lung volumes are normal. There is no pneumothorax or pleural effusion. There is mild cardiomegaly. Mediastinal surgical clips are noted. There are bibasilar opacities, greater on the left. IMPRESSION: Bibasilar opacities, greater on the left. The findings favor an infectious process. Radiographic follow-up is recommended. ACT 112: Negative or not required by law. Electronically signed by: James Crouch M.D. 07/23/2020 7:08 PM Dictated: 07/23/201906Transcribed: 07/23/201906 Hospital Course (1) Acute hypoxemic respiratory failure due to severe acute respiratory syndrome coronavirus 2 (SARS-CoV-2) disease: COVID 19 pneumonia CXR showed bibasilar opacities, greater on the left. Procalcitonin on admission negative Elevated inflammatory markers with ferritin 2648, ESR 35, LDH 285, CRP 3.66 Did not meet criteria for Remdesivir and plasma convalescent since pt saturated at 95% on RA Received dexamethasone on admission, but will consider to stop on discharge since pt has not required any oxygen supplement since during admission Received IV Ceftriaxone and Azithromycin in the ER Blood cx pending Will monitor inflammatory markers Continue abx with doxycycline and ceftriaxone Continue monitor closely YORDY on CKD Creatinine on admission 1.7 Received IVF, creatinine 1.2 today Continue monitor BMP Elevated AST AST on admission 47 Possible related to acute illness AST 27 today Continue to avoid hepatotoxic agents Resolved Hx CAD status post CABG/PVD as per records Continue aspirin, statin and metoprolol denies any chest pain Hypertension Continue metoprolol and amlodipine Continue to hold Telmisartan due to elevate creatinine BP stable DVT prophylaxis on Heparin subcu CODE Status DNR Patient's daughter requesting updates from providers. Ms. Lucie Grant, contact numbers [phone] Disposition Possible discharge tomorrow Updates provided to daughter Rudy over the phone Total Time Total Time Spent Total Time Spent (In Minutes): 35 minutes Total Time Includes: Examination of the Patient, Discharge Planning, Medication Reconciliation, Communication With Other Providers and Other Discharge Plan Discharge Items Patient Disposition: Home - Self-Care Reason For Visit: RESP FAILURE, COVID PNEUMONIA Discharge Diagnosis: COVID 19 pneumonia Acute kidney injury Mild Elevated liver enzymes Hx CAD Hypertension Condition on Discharge: Good Activity: Resume your previous activity Non-emergency contact: Primary Care Provider Call non-emergency contact if: you have any medication questions Follow-up/Referrals: Lew Paez MD [Primary Care Provider] - (Date & Time 07/28/2020 2:00 PM Provider Lew Paez MD [facility] PLEASE NOTE THAT THIS IS A TELEPHONE APPOINTMENT. YOUR PHYSICIAN WILL CALL YOU AT THE APPOINTED TIME. IF YOU HAVE ANY QUESTIONS, PLEASE CALL ) Diet: Heart Healthy Addtl Attending Provider Instructions: Follow up with your primary care provider Dr. Paez on 07/28/2020 at 2:00 PM Check CMP in 1 week to monitor liver function and kidney function Check CBC in 1 week to monitor leukocytes Continue oxygen supplement 3L NC with ambulation Fall precaution Seek medical attention if you develop any Shortness of breath or fever Home Isolation COVID-19 Instructions The following information about Home Isolation is from the CDC Website: https://www.cdc.gov/coronavirus/2019-ncov/hcp/iunkorfh-gzdqzqp-judfzy.html Stay home except to get medical care People who are mildly ill with COVID-19 are able to isolate at home during their illness. You should restrict activities outside your home, except for getting medical care. Do not go to work, school, or public areas. Avoid using public transportation, ride-sharing, or taxis. Separate yourself from other people and animals in your home People: As much as possible, you should stay in a specific room and away from other people in your home. Also, you should use a separate bathroom, if available. Animals: You should restrict contact with pets and other animals while you are sick with COVID-19, just like you would around other people. Although there have not been reports of pets or other animals becoming sick with COVID-19, it is still recommended that people sick with COVID-19 limit contact with animals until more information is known about the virus. When possible, have another member of your household care for your animals while you are sick. If you are sick with COVID-19, avoid contact with your pet, including petting, snuggling, being kissed or licked, and sharing food. If you must care for your pet or be around animals while you are sick, wash your hands before and after you interact with pets and wear a face mask. Call ahead before visiting your doctor If you have a medical appointment, call the healthcare provider and tell them that you have or may have COVID-19. This will help the healthcare providers office take steps to keep other people from getting infected or exposed. Wear a face mask You should wear a face mask when you are around other people (e.g., sharing a room or vehicle) or pets and before you enter a healthcare providers office. If you are not able to wear a face mask (for example, because it causes trouble breathing), then people who live with you should not stay in the same room with you, or they should wear a face mask if they enter your room. Cover your coughs and sneezes Cover your mouth and nose with a tissue when you cough or sneeze. Throw used ti ssues in a lined trash can. Immediately wash your hands with soap and water for at least 20 seconds or, if soap and water are not available, clean your hands with an alcohol-based hand mill hand plate mill that contains at least 60% alcohol. Clean your hands often Wash your hands often with soap and water for at least 20 seconds, especially after blowing your nose, coughing, or sneezing; going to the bathroom; and before eating or preparing food. If soap and water are not readily available, use an alcohol-based hand mill hand plate mill with at least 60% alcohol, covering all surfaces of your hands and rubbing them together until they feel dry. Soap and water are the best option if hands are visibly dirty. Avoid touching your eyes, nose, and mouth with unwashed hands. Avoid sharing personal household items You should not share dishes, drinking glasses, cups, eating utensils, towels, or bedding with other people or pets in your home. After using these items, they should be washed thoroughly with soap and water. Clean all high-touch surfaces everyday High touch surfaces include counters, tabletops, doorknobs, bathroom fixtures, toilets, phones, keyboards, tablets, and bedside tables. Also, clean any surfaces that may have blood, stool, or body fluids on them. Use a household cleaning spray or wipe, according to the label instructions. Labels contain instructions for safe and effective use of the cleaning product including precautions you should take when applying the product, such as wearing gloves and making sure you have good ventilation during use of the product. Monitor your symptoms Seek prompt medical attention if your illness is worsening (e.g., difficulty breathing).Beforeseeking care, call your healthcare provider and tell them that you have, or are being evaluated for, COVID-19. Put on a face mask before you enter the facility. These steps will help the healthcare providers office to keep other people in the office or waiting room from getting infected or exposed. Ask your healthcare provider to call the local or state health department. Persons who are placed under active monitoring or facilitated self- monitoring should follow instructions provided by their local health department or occupational health professionals, as appropriate. When working with your local health department check their available hours. If you have a medical emergency and need to call 911, notify the dispatch personnel that you have, or are being evaluated for COVID-19. If possible, put on a face mask before emergency medical services arrive. Discontinuing home isolation Patients with confirmed COVID-19 should remain under home isolation precautions until the risk of secondary transmission to others is thought to be low. The decision to discontinue home isolation precautions should be made on a [id number]-fyuc basis, in consultation with healthcare providers and state and local health departments. Coronavirus disease 2019 (COVID-19) is a virus that causes a respiratory illness. It is caused by a coronavirus called 2019 novel coronavirus (2019- nCoV). There are many types of coronavirus. Coronaviruses are a very common cause of bronchitis. They may sometimes cause lung infection(pneumonia). Symptoms can range from mild to severe respiratory illness. These viruses are also foundin some animals. COVID-19 was first found in people in [facility], in late 2019. In 2020, several cases of COVID-19 have been confirmed in the [place] Public health officials are working to find the source. How the virus spreads is not yet fully known. It may be spread through droplets of fluid that a person coughs or sneezes into the air. It may be spread if you touch a surface with virus on it, such as a handle or object, and then touch your mouth. What are the symptoms of COVID-19? Some people have no symptoms or mild symptoms. Symptoms may appear 2 to 14 days after contact with the virus. Symptoms can include: Fever Coughing Trouble breathing What are possible complications from COVID-19? In many cases, this virus can cause infection (pneumonia) in both lungs. In some cases, this can cause . How is COVID-19 diagnosed? Your healthcare provider will ask about your symptoms. He or she will also ask about your recent travel and contact with sick people. Testing for the virus is only done through the CDC. If yourhealthcare provider thinks you may have COVID- 19, he or she will work with your local health department and the CDC on testing. Follow all instructions from your healthcare provider. COVID-19 is diagnosed by: Nasal and throat swab. A cotton-tipped swab is wiped inside your nose or throat. This is done to check for viruses in your nasal mucus. Sputum culture. A small sample of mucus coughed from your lungs (sputum) is collected if you have a cough. It is checked for the virus. How is COVID-19 treated? There is currently no medicine to treat the virus. Treatment is done to help your body while it fights the virus. This is known as supportive care. Supportive care may include: Pain medicine. These include acetaminophen and ibuprofen. They are used to help ease pain and reduce fever. Bed rest. This helps your body fight the illness. For severe illness, you may need to stay in the hospital. Care during severe illness may include: IV (intravenous) fluids.These are given through a vein to help keep your body hydrated. Oxygen. Supplemental oxygen or ventilation with a breathing machine (ventilator) may be given. This is done to keep enough oxygen in your body. Are you at risk for COVID-19? If youve been to a place where people have been sick with this virus, you are at risk for infection. You are at risk if you: Recently traveled to an affected area Had contact with a sick person who recently traveled to this area Had contact with a person who was diagnosed with COVID-19 How can COVID-19 be prevented? There is no vaccine yet. The best prevention is to not have contact with the virus. The CDC advises that people should not travel to areas where there are COVID-19 outbreaks right now for any reason that is not urgent. To help prevent spreading the infection, wash your hands often, or use an alcohol-basedhand mill hand plate mill. If you are in an area with COVID-19: Wash your hands often. Or use an alcohol-based hand mill hand plate mill often. Only touch your eyes, nose, or mouth with clean hands. Dont have contact with people who are sick. Follow local instructions about being in public. For example, you may be told to not use public transport for a period of time. Stay away from markets that have live or animals. Wash your hands after touching any animals. Don't touch animals that may be sick. Dont share eating or drinking tools with sick people. Dont kiss someone who is sick. Clean surfaces often with disinfectant. If you were in an area with COVID-19 in the last 14 days: Call your healthcare provider. He or she can talk with local health staff to see what action may be needed. Follow all instructions from your provider. Take your temperature every morning and evening for at least 14 days. This is to check for fever. Keep a record of the readings. Keep watch for symptoms of the virus. Tell your provider right away if you have symptoms. If you were in an area with COVID-19 and have a fever or other symptoms: Dont panic. Keep in mind that other illnesses can cause similar symptoms. Stay away from work, school, and public places. Limit physical contact with family members. Don't kiss anyone or share eating or drinking utensils. Clean surfaces you touch with disinfectant. This is to help prevent the virus from spreading. Call your healthcare provider. Explain that you have been exposed to COVID-19 and have symptoms. Do this before going to any hospital. Wait for instructions. Keep in mind that healthcare staff may wear protective equipment such as masks, gowns, gloves, and eye protection. You may be put in a separate room. This is to prevent the possible virus from spreading. Tell the healthcare staff about recent travel. This includes local travel on public transport. Staff may need to find other people you have been in contact with. Follow all instructions the healthcare staff give you. If you have been diagnosed with COVID-19 Follow all instructions from your healthcare provider. Dont leave your home, except to get medical care. Call your healthcare providers office before going. They can prepare and give you instructions. This will help prevent the virus from spreading. Dont go to work, school, or public areas. Dont use public transport or taxis. Stay away from other people in your home. Have them wear face masks around you. Dont share household items or food. Wear a face mask if you can. This includes at home or in a medical facility. Cover your face with a tissue when you cough or sneeze. Throw the tissue away. Wash your hands. Wash your hands often. Caregivers should: Follow all instructions from healthcare staff. Wear a face mask and protective clothing as advised. Wash hands often. Keep track of the sick persons symptoms. Clean surfaces, fabrics, and laundry thoroughly. Keep other people away from the sick person. When to call your healthcare provider Call your healthcare provider: If youve recently traveled and have symptoms If you have been diagnosed with COVID-19 and your symptoms are worse To learn more To find out more about COVID-19, visit the CDC website at www.c dc.gov/coronavirus/2019-ncov/index.html. [employer]. [address] [place] [address], [place] [address]. All rights reserved. This information is not intended as a substitute for professional medical care. Always follow your healthcare professional's instructions. This information has been adapted from [employer] Pending Studies at Discharge: No Stand-Alone Forms: My [employer], Smoking Cessation Medications and DC Order Prescriptions: New doxycycline hyclate 100 mg Capsule 100 mg PO BID 5 Days Qty: 10 RF: 0 Continued telmisartan [Micardis] 20 mg tablet 20 mg PO DAILY RF: 0 acetaminophen [Tylenol Arthritis Pain] 650 mg tablet extended release 650 mg PO Q12H PRN (Reason: Pain) RF: 0 metoprolol succinate 25 mg tablet extended release 24 hr 12.5 mg PO DAILY RF: 0 atorvastatin 40 mg Tablet 40 mg PO DAILY RF: 0 amlodipine 2.5 mg Tablet 2.5 mg PO DAILY RF: 0 aspirin [Aspirin Low Dose] 81 mg Tablet,Delayed Release (Dr/Ec) 81 mg PO DAILY RF: 0 nitroglycerin 0.4 mg Tablet, Sublingual 0.4 mg Sublingual DIRECTED RF: 0 Discharge Orders: Discharge Order (Routine); Ordered 07/25/20 Ordered By: Ben Cruz Admission Data Admit Date/Time: 07/23/20 21:10 Attending Provider: Ben Cruz Admit Provider: Nick Escobedo Primary Care Provider: Lew Paez Other Interventions: Discharge Summary Assessment (RN) Last Done: 07/25/20 12:53
== END 2020-07-25 16:43 | disposition home or self-care (01) | DRG 177 ==
LOC: ED 17:40 → 2E 21:10 → SUATTDRO 21:10 → 2E 22:55 → 2N 07-25 07:33